=== PATIENT | male | born 1955 | race African-American/Black ===

== ENCOUNTER 2016-08-17 13:50 | Inpatient (IN) | payer OTHER ==
[~2016-08-17] VITALS: Ht 177.8 cm; Wt 66.5 kg
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
--- NOTE | ~2016-08-17 | EKG ---
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 : 1955 Requested By: Eusebio Newman Order Number: [id number] MD: Brady Veloz Measurements Intervals [place] Rate: 99 P: 73 WA: 142 QRS: 56 QRSD: 93 T: 81 QT: 336 QTc: 432 Interpretive Statements Sinus rhythm Poor R-wave progression Compared to ECG 08/15/2016 14:55:43 Ventricular premature complex(es) no longer present Electronically Signed On 08-23-2016 8:30:30 CDT by Brady Veloz [email or web address] <ELECTRONICALLY SIGNED> By: Brady Veloz MD, [facility] 08/23/16 0830 1125 1125 Brady Veloz MD, [facility] /EPI
[~2016-08-17 13:50] MED LIST: ALBUTEROL2.5 MG/0.5 INH; AUGMENTIN 875-1 EACH PO; BROVANA15 MCG/2 M INH; DOXYCYCLINE 10100 MG PO; HYDROCODONE-AP1 EAC6 PO; LEVAQUIN 500 M500 M2 PO; PREDNISONE 10 M10 MG PO; PREDNISONE 20 M20 MG PO; PREDNISONE50 MG PO; PROAIR HFA8.5 GM INH; PROVENTIL HFA6.7 G1 INH; PULMICORT0.5 MG/22 INH; VENTOLIN HFA 1818 GM INH; VERAPAMIL HCL 880 M1 PO
[2016-08-17 13:55] VITALS: BP 152/112
[2016-08-17 14:33] LABS: HEMATOCRIT 44.3 % (42.0-52.0); HEMOGLOBIN 14.8 gm/dL (14.0-18.0); MCH 30.4 pg (26.0-34.0); MCHC 33.3 g/dL (28.0-37.0); MCV 91.3 fL (80.0-100.0); PLATELET COUNT 296 thou/uL (150-400); RBC 4.85 mil/uL (4.50-6.00); RDW 12.9 % (10.5-14.5)
[2016-08-17 14:34] LABS: MANUAL DIFF YES
[2016-08-17 14:34] LABS: ABG SAMPLE TYPE ARTERIAL; BE(vivo) 3.2 mmol/L (-2 to +3); HCO3 29.6 mmol/L (22.0-26.0); LACTATE 0.95 mmol/L (0.5-2.0); O2(CT) 21.2 mL/dL (15.0-23.0); O2Hb 94.8 % (92.0-98.0); PCO2 51.6 mmHg (35.0-45.0); PO2 109.4 mmHg (80.0-100.0); STICK SITE R.RADIAL; pH 7.377 (7.360-7.450); sO2 97.8 % (92.0-98.0); tCO2 31.2 mmol/L (24.0-30.0)
[2016-08-17 14:43] LABS: CALCIUM 8.9 mg/dL (8.5-10.1); CREATININE 0.7 mg/dL (0.6-1.3); POTASSIUM 4.4 mmol/L (3.5-5.1)
[2016-08-17 15:15] LABS: ABSOLUTE NEUTROPHILS 7.9 thou/uL (1.4-8.2); PLATELET ESTIMATE NORMAL; TOTAL CELL COUNT 100
[2016-08-17 17:18] VITALS: BP 153/93
[2016-08-17 17:30] LABS: ALBUMIN 3.4 g/dL (3.4-5.0); CALCIUM 8.9 mg/dL (8.5-10.1); CREATININE 0.7 mg/dL (0.6-1.3); POTASSIUM 4.6 mmol/L (3.5-5.1); TOTAL BILIRUBIN 0.5 mg/dL (<0.1-1.0); TOTAL PROTEIN 7.1 g/dL (6.4-8.2)
[2016-08-17] MEDS ORDERED: VERAPAMIL HCL 880 M1 PO (18:08)
[2016-08-17 18:53] LABS: URINE BILIRUBIN NEGATIVE (Negative); URINE BLOOD 1+ (Negative); URINE COLOR YELLOW; URINE GLUCOSE-RANDOM* NEGATIVE (Negative); URINE KETONES NEGATIVE (Negative); URINE LEUKOCYTES-REFLEX NEGATIVE (Negative); URINE PROTEIN (DIPSTICK) NEGATIVE (Negative); URINE SPECIFIC GRAVITY 1.025 (1.003-1.035); URINE UROBILINOGEN 0.2 E.U./dl (0.2-1.0)
[2016-08-17 19:12] LABS: CASTS None Seen /LPF (None Seen); CRYSTALS None Seen /LPF (None Seen); SQUAMOUS None Seen /LPF (0-3); URINE RBC 0-2 Rare /HPF (0-2); URINE WBC-REFLEX None Seen /HPF (0-5)
[2016-08-17 20:00] VITALS: BP 179/116
[2016-08-17 23:50] VITALS: BP 129/94
[2016-08-18 05:18] LABS: HEMOGLOBIN 14.4 gm/dL (14.0-18.0); MCH 30.5 pg (26.0-34.0); MCHC 33.5 g/dL (28.0-37.0); MCV 91.1 fL (80.0-100.0); PLATELET COUNT 291 thou/uL (150-400); RBC 4.72 mil/uL (4.50-6.00); RDW 13.2 % (10.5-14.5); WBC 7.6 thou/uL (4.0-11.0)
[2016-08-18 05:28] VITALS: BP 139/98
[2016-08-18 05:28] LABS: MANUAL DIFF YES
[2016-08-18 05:44] LABS: CALCIUM 8.6 mg/dL (8.5-10.1); CREATININE 0.7 mg/dL (0.6-1.3); MAGNESIUM 2.1 mg/dL (1.8-2.4); POTASSIUM 3.9 mmol/L (3.5-5.1)
[2016-08-18 07:40] VITALS: BP 151/97
[2016-08-18 08:24] LABS: ABSOLUTE NEUTROPHILS 6.8 thou/uL (1.4-8.2); TOTAL CELL COUNT 100
[2016-08-18 08:25] LABS: ANISOCYTOSIS SLIGHT
[2016-08-18 11:52] VITALS: BP 138/94
[2016-08-18 16:25] VITALS: BP 130/82
[2016-08-18 19:16] VITALS: BP 132/93
[2016-08-19 03:32] VITALS: BP 112/78
[2016-08-19 05:36] LABS: HEMATOCRIT 41.4 % (42.0-52.0); HEMOGLOBIN 14.1 gm/dL (14.0-18.0); MCV 91.2 fL (80.0-100.0); PLATELET COUNT 293 thou/uL (150-400); RBC 4.54 mil/uL (4.50-6.00); WBC 8.3 thou/uL (4.0-11.0)
[2016-08-19 05:49] LABS: MANUAL DIFF YES
[2016-08-19 06:43] LABS: ABSOLUTE NEUTROPHILS 7.4 thou/uL (1.4-8.2); TOTAL CELL COUNT 100
[2016-08-19 07:38] VITALS: BP 140/93
[2016-08-19 11:30] VITALS: BP 128/93
[2016-08-19 15:33] VITALS: BP 146/99
[2016-08-19 19:36] VITALS: BP 153/91
[2016-08-20 04:10] LABS: HEMOGLOBIN 13.7 gm/dL (14.0-18.0); MCH 30.7 pg (26.0-34.0); MCHC 33.5 g/dL (28.0-37.0); MCV 91.7 fL (80.0-100.0); PLATELET COUNT 290 thou/uL (150-400); RBC 4.47 mil/uL (4.50-6.00); RDW 12.8 % (10.5-14.5); WBC 10.8 thou/uL (4.0-11.0)
[2016-08-20 04:19] LABS: CALCIUM 8.6 mg/dL (8.5-10.1); CREATININE 0.7 mg/dL (0.6-1.3); POTASSIUM 4.2 mmol/L (3.5-5.1)
[2016-08-20 04:23] LABS: MANUAL DIFF YES
[2016-08-20 04:56] VITALS: BP 122/82
[2016-08-20 05:07] LABS: ABSOLUTE NEUTROPHILS 9.4 thou/uL (1.4-8.2); ANISOCYTOSIS 1+; TOTAL CELL COUNT 100
[2016-08-20 07:15] VITALS: BP 120/85
[2016-08-20 11:57] VITALS: BP 126/88
[2016-08-20 19:56] VITALS: BP 138/98
[2016-08-21 02:47] VITALS: BP 106/73
[2016-08-21 06:01] LABS: HEMATOCRIT 43.8 % (42.0-52.0); HEMOGLOBIN 14.5 gm/dL (14.0-18.0); MCH 30.4 pg (26.0-34.0); MCHC 33.2 g/dL (28.0-37.0); MCV 91.5 fL (80.0-100.0); RBC 4.79 mil/uL (4.50-6.00); RDW 13.1 % (10.5-14.5); WBC 14.1 thou/uL (4.0-11.0)
[2016-08-21 06:14] LABS: ALBUMIN 3.1 g/dL (3.4-5.0); CALCIUM 9.1 mg/dL (8.5-10.1); CREATININE 0.6 mg/dL (0.6-1.3); PHOSPHORUS 3.8 mg/dL (2.5-4.9); POTASSIUM 4.2 mmol/L (3.5-5.1)
[2016-08-21 08:43] VITALS: BP 133/93
[2016-08-21 12:00] VITALS: BP 129/94
[2016-08-21 16:24] VITALS: BP 132/93
[2016-08-21 20:00] VITALS: BP 130/97
[2016-08-22 04:00] VITALS: BP 122/85
[2016-08-22 06:08] LABS: HEMATOCRIT 45.2 % (42.0-52.0); HEMOGLOBIN 15.1 gm/dL (14.0-18.0); MCH 30.4 pg (26.0-34.0); MCHC 33.3 g/dL (28.0-37.0); MCV 91.1 fL (80.0-100.0); RBC 4.96 mil/uL (4.50-6.00); RDW 12.9 % (10.5-14.5); WBC 17.3 thou/uL (4.0-11.0)
[2016-08-22 06:24] LABS: ALBUMIN 3.1 g/dL (3.4-5.0); CREATININE 0.7 mg/dL (0.6-1.3); PHOSPHORUS 4.8 mg/dL (2.5-4.9)
[2016-08-22 08:17] VITALS: BP 122/88
[2016-08-22 12:00] VITALS: BP 122/88
[2016-08-22 12:04] VITALS: BP 114/92
[2016-08-22 15:58] VITALS: BP 124/90
[2016-08-22 20:06] VITALS: BP 111/85
[2016-08-23 03:55] VITALS: BP 114/82
[2016-08-23 07:24] VITALS: BP 128/94
[2016-08-23 11:44] VITALS: BP 109/73
[2016-08-23 15:40] VITALS: BP 103/81
[2016-08-23 20:25] VITALS: BP 132/76
[2016-08-24 04:00] VITALS: BP 127/83
[2016-08-24 09:03] VITALS: BP 103/77
[2016-08-24 13:19] VITALS: BP 133/95
[2016-08-24 16:28] VITALS: BP 116/61
[2016-08-24 20:00] VITALS: BP 103/82
[2016-08-25 04:00] VITALS: BP 102/76
[2016-08-25 08:00] VITALS: BP 114/87
[2016-08-25 12:00] VITALS: BP 99/74
[2016-08-25 16:00] VITALS: BP 104/78
[2016-08-25] MEDS ORDERED: CEFUROXIME250 MG PO (16:46)
[2016-08-25] MEDS ORDERED: MUCINEX TA600 MG/TA1 PO (16:46)
[2016-08-25] MEDS ORDERED: PANTOPRAZOLE SO40 M1 PO (16:46)
[2016-08-25] MEDS ORDERED: PREDNISONE 10 M10 MG PO (16:48)
[2016-08-25 17:22] VITALS: BP 122/88
== END 2016-08-25 19:05 | disposition home health service (06) | DRG 871 ==
LOC: ER 13:50 → 4W 15:04 → EROBS 15:04 → 4W 15:40
PROVIDERS: Emergency Medicine; Hospitalist; Internal Medicine; Internal Medicine Geriatric Medicine
DX: A41.9 Sepsis, unspecified organism (principal); J96.22 Acute and chronic respiratory failure with hypercapnia; J18.9 Pneumonia, unspecified organism; J44.1 Chronic obstructive pulmonary disease with (acute) exacerbation; I16.1 Hypertensive emergency; J44.0 Chronic obstructive pulmonary disease with (acute) lower respiratory infection; I47.1 Supraventricular tachycardia; I10 Essential (primary) hypertension; I27.2 Other secondary pulmonary hypertension; F41.9 Anxiety disorder, unspecified; Z87.891 Personal history of nicotine dependence; Z82.3 Family history of stroke; Z82.49 Family history of ischemic heart disease and other diseases of the circulatory system; Z88.6 Allergy status to analgesic agent; Z83.6 Family history of other diseases of the respiratory system; Z79.899 Other long term (current) drug therapy; Z23 Encounter for immunization
CPT/HCPCS: 10045; 10047

== ENCOUNTER 2016-08-28 13:50 | Inpatient (IN) | payer OTHER ==
[~2016-08-28] VITALS: Ht 188 cm; Wt 67.1 kg
[~2016-08-28 13:50] MED LIST changes: +CEFUROXIME250 MG PO; +MUCINEX TA600 MG/TA1 PO; +PANTOPRAZOLE SO40 M1 PO
[2016-08-28 13:51] VITALS: BP 128/89
[2016-08-28] MEDS ORDERED: PREDNISONE 10 M10 MG PO (14:14)
[2016-08-28 14:28] LABS: HEMATOCRIT 41.7 % (42.0-52.0); MCH 30.3 pg (26.0-34.0); MCHC 33.6 g/dL (28.0-37.0); MCV 90.1 fL (80.0-100.0); PLATELET COUNT 456 thou/uL (150-400); RBC 4.63 mil/uL (4.50-6.00); WBC 18.3 thou/uL (4.0-11.0)
[2016-08-28 14:30] LABS: ABG SAMPLE TYPE ARTERIAL; BE(vivo) 1.7 mmol/L (-2 to +3); HCO3 27.3 mmol/L (22.0-26.0); LACTATE 1.67 mmol/L (0.5-2.0); O2(CT) 17.7 mL/dL (15.0-23.0); O2Hb 85.6 % (92.0-98.0); PCO2 46.1 mmHg (35.0-45.0); sO2 87.9 % (92.0-98.0); tCO2 28.7 mmol/L (24.0-30.0)
[2016-08-28 14:31] LABS: PO2 54.5 mmHg (80.0-100.0); STICK SITE L.RADIAL
[2016-08-28 14:33] LABS: MANUAL DIFF YES
[2016-08-28 14:39] LABS: CALCIUM 8.5 mg/dL (8.5-10.1); CREATININE 0.8 mg/dL (0.6-1.3); POTASSIUM 4.7 mmol/L (3.5-5.1)
[2016-08-28 14:59] LABS: ABSOLUTE NEUTROPHILS 16.3 thou/uL (1.4-8.2); ANISOCYTOSIS 1+; TOTAL CELL COUNT 100
[2016-08-28 17:36] VITALS: BP 140/102
[2016-08-28 21:00] VITALS: BP 111/78
[2016-08-29 04:56] VITALS: BP 131/98
[2016-08-29 05:04] LABS: HEMATOCRIT 39.8 % (42.0-52.0); HEMOGLOBIN 13.2 gm/dL (14.0-18.0); MCH 29.9 pg (26.0-34.0); MCHC 33.2 g/dL (28.0-37.0); RBC 4.42 mil/uL (4.50-6.00); WBC 19.2 thou/uL (4.0-11.0)
[2016-08-29 05:17] LABS: CALCIUM 8.6 mg/dL (8.5-10.1); CREATININE 0.7 mg/dL (0.6-1.3)
[2016-08-29 07:17] VITALS: BP 124/88
[2016-08-29 11:40] VITALS: BP 131/94
[2016-08-29 15:26] VITALS: BP 148/97
[2016-08-29 19:15] VITALS: BP 121/81
[2016-08-30 03:35] VITALS: BP 117/74
[2016-08-30 05:54] LABS: HEMATOCRIT 40.5 % (42.0-52.0); HEMOGLOBIN 13.5 gm/dL (14.0-18.0); MCH 30.1 pg (26.0-34.0); MCHC 33.2 g/dL (28.0-37.0); MCV 90.5 fL (80.0-100.0); RBC 4.48 mil/uL (4.50-6.00); RDW 12.9 % (10.5-14.5); WBC 26.4 thou/uL (4.0-11.0)
[2016-08-30 06:09] LABS: CALCIUM 8.6 mg/dL (8.5-10.1); CREATININE 0.7 mg/dL (0.6-1.3); POTASSIUM 3.8 mmol/L (3.5-5.1)
[2016-08-30 07:40] VITALS: BP 120/85
[2016-08-30 15:30] VITALS: BP 116/85
[2016-08-30 19:36] VITALS: BP 127/88
[2016-08-31 03:42] VITALS: BP 146/100
[2016-08-31 05:10] LABS: HEMATOCRIT 40.6 % (42.0-52.0); HEMOGLOBIN 13.4 gm/dL (14.0-18.0); MCH 29.9 pg (26.0-34.0); MCV 90.6 fL (80.0-100.0); RBC 4.49 mil/uL (4.50-6.00); RDW 12.9 % (10.5-14.5); WBC 20.7 thou/uL (4.0-11.0)
[2016-08-31 05:20] LABS: CALCIUM 8.7 mg/dL (8.5-10.1); CREATININE 0.6 mg/dL (0.6-1.3); POTASSIUM 4.2 mmol/L (3.5-5.1)
[2016-08-31 07:14] VITALS: BP 115/71
[2016-08-31 11:05] VITALS: BP 136/94
[2016-08-31 12:28] VITALS: BP 136/94
[2016-08-31] MEDS ORDERED: LEVAQUIN 500 M500 M1 PO (14:41)
[2016-08-31] MEDS ORDERED: PREDNISONE 10 M10 MG PO (14:42)
[2016-08-31 15:16] VITALS: BP 136/94
[2016-08-31] MEDS ORDERED: ALPRAZOLAM 0.50.5 M1 PO (15:36)
[2016-08-31 22:06] LABS: INFLUENZA B Negative (Negative); METAPNEUMOVIRUS Negative (Negative)
== END 2016-08-31 18:42 | disposition home health service (06) | DRG 871 ==
LOC: ER 13:50 → 4W 15:25 → EROBS 15:25 → 4W 16:54
PROVIDERS: Emergency Medicine; Internal Medicine
DX: A41.9 Sepsis, unspecified organism (principal); J96.21 Acute and chronic respiratory failure with hypoxia; J44.1 Chronic obstructive pulmonary disease with (acute) exacerbation; I10 Essential (primary) hypertension; F41.9 Anxiety disorder, unspecified; I27.2 Other secondary pulmonary hypertension; E78.5 Hyperlipidemia, unspecified; Z87.891 Personal history of nicotine dependence; Z87.828 Personal history of other (healed) physical injury and trauma; Z88.6 Allergy status to analgesic agent; Z82.3 Family history of stroke; Z82.5 Family history of asthma and other chronic lower respiratory diseases; Z81.2 Family history of tobacco abuse and dependence; Z79.51 Long term (current) use of inhaled steroids; Z79.899 Other long term (current) drug therapy
CPT/HCPCS: 10040

== ENCOUNTER 2016-09-15 10:07 | Emergency (ER) | payer OTHER ==
[~2016-09-15] VITALS: Ht 188 cm; Wt 68.0 kg
--- NOTE | ~2016-09-15 | EKG ---
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 : 1955 Requested By: Jose Montelongo Order Number: [id number] MD: Brady Veloz Measurements Intervals [place] Rate: 81 P: 46 VT: 160 QRS: 37 QRSD: 85 T: 70 QT: 349 QTc: 405 Interpretive Statements Sinus rhythm No significant abnormality Compared to ECG 08/22/2016 11:25:00 Poor R-wave progression no longer present Electronically Signed On 09-16-2016 8:34:33 CDT by Brady Veloz [email or web address] <ELECTRONICALLY SIGNED> By: Brady Veloz MD, [facility] 09/16/16 0834 1007 [facility] Brady Veloz MD, [facility] /EPI
[~2016-09-15 10:07] MED LIST changes: +ALPRAZOLAM 0.50.5 M1 PO; +LEVAQUIN 500 M500 M1 PO
[2016-09-15 10:40] LABS: HEMATOCRIT 41.9 % (42.0-52.0); HEMOGLOBIN 14.2 gm/dL (14.0-18.0); MCH 30.8 pg (26.0-34.0); MCV 90.6 fL (80.0-100.0); PLATELET COUNT 257 thou/uL (150-400); RBC 4.63 mil/uL (4.50-6.00); RDW 13.5 % (10.5-14.5); WBC 10.3 thou/uL (4.0-11.0)
[2016-09-15 10:47] LABS: MANUAL DIFF YES
[2016-09-15 10:50] LABS: CALCIUM 8.5 mg/dL (8.5-10.1); CREATININE 0.8 mg/dL (0.7-1.3); POTASSIUM 3.9 mmol/L (3.5-5.1)
[2016-09-15 11:23] LABS: METAMYELOCYTES 3 %; TOTAL CELL COUNT 100
[2016-09-15 11:24] LABS: ANISOCYTOSIS SLIGHT
[2016-09-15] MEDS ORDERED: ALBUTEROL2.5 MG/31 INH (12:40)
[2016-09-15] MEDS ORDERED: PROTONIX40 MG PO (12:40)
[2016-09-15] MEDS ORDERED: VENTOLIN HFA 1818 GM INH (12:40)
[2016-09-15] MEDS ORDERED: VERAPAMIL HCL 880 M1 PO (12:40)
[2016-09-15] MEDS ORDERED: QVAR8.7 G1 IH (12:40)
[2016-09-15 12:48] VITALS: BP 118/82
== END 2016-09-15 12:53 ==
LOC: ER 10:07
PROVIDERS: Emergency Medicine
DX: J44.1 Chronic obstructive pulmonary disease with (acute) exacerbation (principal); I10 Essential (primary) hypertension; Z88.6 Allergy status to analgesic agent; F17.210 Nicotine dependence, cigarettes, uncomplicated; F10.99 Alcohol use, unspecified with unspecified alcohol-induced disorder

== ENCOUNTER 2016-09-25 06:25 | Inpatient (IN) | payer OTHER ==
[~2016-09-25] VITALS: Ht 188 cm; Wt 73.0 kg
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
--- NOTE | ~2016-09-25 | EKG ---
[address] [place] [place] [address] ELECTROCARDIOGRAM REPORT Name: CATHERINE PORTILLO Room #: 441-P ADM IN M.R.#: [id number] Admission: 09/25/16 Attend Phys: Fabian Crisostomo MD Discharge: Date of : 57 Report #: [id number] THIS REPORT FOR: //name// [facility] ED Test Date: 2016-09-25 Test Time: 06:41:41 Pat Name: CATHERINE PORTILLO Department: Room: [facility] Gender: M Residential Youth Counselor: FROILAN : 1955 Requested By: Wyatt Calvin Order Number: [id number] MD: Brady Veloz Measurements Intervals [place] Rate: 73 P: 71 MT: 178 QRS: 61 QRSD: 85 T: 74 QT: 384 QTc: 424 Interpretive Statements Sinus rhythm Low voltage, extremity leads Baseline wander in lead(s) V1 Compared to ECG 09/15/2016 10:07:58 Low QRS voltage now present Electronically Signed On 09-25-2016 15:11:24 CDT by Brady Veloz [email or web address] <ELECTRONICALLY SIGNED> By: Brady Veloz MD, [facility] 09/25/16 1511 0641 0641 Brady Veloz MD, [facility] /EPI
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
[2016-09-25 06:25] VITALS: BP 123/85
[~2016-09-25 06:25] MED LIST changes: +ALBUTEROL2.5 MG/31 INH; +PROTONIX40 MG PO; +QVAR8.7 G1 IH
[2016-09-25 06:29] LABS: ABG SAMPLE TYPE ARTERIAL; BE(vivo) 3.2 mmol/L (-2 to +3); HCO3 28.6 mmol/L (22.0-26.0); LACTATE 3.72 mmol/L (0.5-2.0); O2(CT) 16.7 mL/dL (15.0-23.0); O2Hb 87.3 % (92.0-98.0); PCO2 46.2 mmHg (35.0-45.0); PO2 57.5 mmHg (80.0-100.0); STICK SITE L.RADIAL; pH 7.409 (7.360-7.450)
[2016-09-25 06:57] LABS: HEMATOCRIT 35.3 % (42.0-52.0); HEMOGLOBIN 11.8 gm/dL (14.0-18.0); MCH 30.2 pg (26.0-34.0); MCHC 33.4 g/dL (28.0-37.0); MCV 90.4 fL (80.0-100.0); RBC 3.9 mil/uL (4.50-6.00); RDW 13.9 % (10.5-14.5); WBC 14.4 thou/uL (4.0-11.0)
[2016-09-25 07:04] LABS: CALCIUM 8.1 mg/dL (8.5-10.1); CREATININE 0.6 mg/dL (0.7-1.3); POTASSIUM 3.7 mmol/L (3.5-5.1)
[2016-09-25 09:15] VITALS: BP 132/78
[2016-09-25 09:30] VITALS: BP 140/89
[2016-09-25 11:29] VITALS: BP 141/89
[2016-09-25 16:00] VITALS: BP 141/91
[2016-09-25 20:05] VITALS: BP 139/86
[2016-09-26 04:30] VITALS: BP 143/99
[2016-09-26 06:14] LABS: HEMATOCRIT 32.6 % (42.0-52.0); HEMOGLOBIN 10.9 gm/dL (14.0-18.0); MCHC 33.4 g/dL (28.0-37.0); RBC 3.62 mil/uL (4.50-6.00); RDW 13.9 % (10.5-14.5); WBC 20.8 thou/uL (4.0-11.0)
[2016-09-26 06:38] LABS: ALBUMIN 2.4 g/dL (3.4-5.0); CALCIUM 7.7 mg/dL (8.5-10.1); CREATININE 0.5 mg/dL (0.7-1.3); POTASSIUM 3.6 mmol/L (3.5-5.1); TOTAL BILIRUBIN 0.5 mg/dL (<0.1-1.0); TOTAL PROTEIN 5.4 g/dL (6.4-8.2)
[2016-09-26 08:00] VITALS: BP 142/89
[2016-09-26 16:00] VITALS: BP 150/90
[2016-09-26 20:35] VITALS: BP 149/97
[2016-09-27 03:30] VITALS: BP 139/88
[2016-09-27 08:00] VITALS: BP 147/102
[2016-09-27 09:30] VITALS: BP 140/88
[2016-09-27 11:25] VITALS: BP 123/85
[2016-09-27 16:00] VITALS: BP 135/98
[2016-09-27 19:23] VITALS: BP 140/96
[2016-09-28 03:45] VITALS: BP 138/98
[2016-09-28 07:45] VITALS: BP 141/98
[2016-09-28 12:00] VITALS: BP 142/93
[2016-09-28 15:24] VITALS: BP 162/98
[2016-09-28 19:01] VITALS: BP 131/93
[2016-09-29 02:45] VITALS: BP 137/103
[2016-09-29 08:00] VITALS: BP 163/103
[2016-09-29 11:55] VITALS: BP 143/94
[2016-09-29 12:06] VITALS: BP 143/94
[2016-09-29] MEDS ORDERED: DOXYCYCLINE 10100 MG PO (12:21)
[2016-09-29] MEDS ORDERED: MUCINEX TA600 MG/TA2 PO (12:21)
[2016-09-29] MEDS ORDERED: FLONASE 0.05%50 MCG NASAL (12:21)
[2016-09-29] MEDS ORDERED: ALPRAZOLAM 0.0.25 M1 PO (12:21)
[2016-09-29] MEDS ORDERED: PREDNISONE 10 M10 M1 PO (12:21)
[2016-09-29] MEDS ORDERED: XOPENEX 0.63 MG/3 M1 INH ×2 (12:21)
== END 2016-09-29 16:27 | disposition home health service (06) | DRG 189 ==
LOC: ER 06:25 → EROBS 08:05 → 4S 08:05
PROVIDERS: Emergency Medicine; Internal Medicine Pulmonary Disease
DX: J96.01 Acute respiratory failure with hypoxia (principal); E43 Unspecified severe protein-calorie malnutrition; J44.1 Chronic obstructive pulmonary disease with (acute) exacerbation; I48.92 Unspecified atrial flutter; I10 Essential (primary) hypertension; F41.9 Anxiety disorder, unspecified; R53.81 Other malaise; Z82.3 Family history of stroke; Z83.6 Family history of other diseases of the respiratory system; Z87.891 Personal history of nicotine dependence; Z88.6 Allergy status to analgesic agent
CPT/HCPCS: 10100

== ENCOUNTER 2016-10-06 17:03 | Inpatient (IN) | payer OTHER ==
[~2016-10-06] VITALS: Ht 188 cm; Wt 69.9 kg
--- NOTE | ~2016-10-06 | EKG ---
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: - : 1955 Requested By: Chelsi Mahoney Order Number: [id number] MD: Brady Veloz Measurements Intervals [place] Rate: 73 P: 0 WA: 184 QRS: 55 QRSD: 85 T: 67 QT: 380 QTc: 419 Interpretive Statements Sinus rhythm Low voltage, extremity leads Compared to ECG 09/25/2016 06:41:41 No significant changes Electronically Signed On 10-07-2016 8:03:20 CDT by Brady Veloz [email or web address] <ELECTRONICALLY SIGNED> By: Brady Veloz MD, [facility] 10/07/16 0803 1708 170 Brady Veloz MD, [facility] /EPI
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
[~2016-10-06 17:03] MED LIST changes: +ALPRAZOLAM 0.0.25 M1 PO; +FLONASE 0.05%50 MCG NASAL; +MUCINEX TA600 MG/TA2 PO; +PREDNISONE 10 M10 M1 PO; +XOPENEX 0.63 MG/3 M1 INH
[2016-10-06 17:05] VITALS: BP 114/73
[2016-10-06 18:09] LABS: HEMATOCRIT 48.2 % (42.0-52.0); HEMOGLOBIN 15.7 gm/dL (14.0-18.0); MCH 30.2 pg (26.0-34.0); MCHC 32.5 g/dL (28.0-37.0); MCV 92.9 fL (80.0-100.0); PLATELET COUNT 357 thou/uL (150-400); RBC 5.19 mil/uL (4.50-6.00); RDW 14.6 % (10.5-14.5); WBC 29.7 thou/uL (4.0-11.0)
[2016-10-06 18:12] LABS: MANUAL DIFF YES
[2016-10-06 18:20] LABS: ANION GAP 8 mmol/L (7-16); BUN 15 mg/dL (7-18); CALCIUM 9.1 mg/dL (8.5-10.1); CHLORIDE 98 mmol/L (98-107); CO2 31 mmol/L (21-32); CREATININE 0.7 mg/dL (0.7-1.3); GLUCOSE 159 mg/dL (74-106); POTASSIUM 4.8 mmol/L (3.5-5.1); SODIUM 137 mmol/L (136-145)
[2016-10-06 18:23] LABS: APTT 24.8 Seconds (24.5-32.8); PROTIME 10.1 Seconds (9.3-11.4)
[2016-10-06 18:31] LABS: ALBUMIN 3.6 g/dL (3.4-5.0); ALKALINE PHOSPHATASE 72 U/L (46-116); NT-PRO BRAIN NAT PEPTIDE 346 pg/mL (<300); SGOT 21 U/L (15-37); SGPT 31 U/L (30-65); TOTAL BILIRUBIN 0.8 mg/dL (<0.1-1.0); TOTAL PROTEIN 6.8 g/dL (6.4-8.2); TROPONIN-I < 0.04 ng/mL (<0.04-0.07)
[2016-10-06 18:33] LABS: ABSOLUTE NEUTROPHILS 28.2 thou/uL (1.4-8.2); PLATELET ESTIMATE NORMAL; TOTAL CELL COUNT 100
[2016-10-06 18:34] LABS: ANISOCYTOSIS SLIGHT
[2016-10-06 19:50] LABS: ABG SAMPLE TYPE ARTERIAL; BE(vivo) 8.2 mmol/L (-2 to +3); HCO3 34.7 mmol/L (22.0-26.0); O2Hb 88.9 % (92.0-98.0); PCO2 55.7 mmHg (35.0-45.0); PO2 58.9 mmHg (80.0-100.0); STICK SITE R.RADIAL; pH 7.412 (7.360-7.450); sO2 90.3 % (92.0-98.0); tCO2 36.4 mmol/L (24.0-30.0)
[2016-10-06 20:41] VITALS: BP 118/76
[2016-10-07] VITALS (7 sets, daily range): BP systolic 101–122; BP diastolic 73–90
[2016-10-07 08:34] LABS: HEMATOCRIT 49.3 % (42.0-52.0); MCH 30.4 pg (26.0-34.0); MCHC 32.5 g/dL (28.0-37.0); MCV 93.6 fL (80.0-100.0); RBC 5.27 mil/uL (4.50-6.00); RDW 15.1 % (10.5-14.5); WBC 14.8 thou/uL (4.0-11.0)
[2016-10-07 08:43] LABS: CALCIUM 8.5 mg/dL (8.5-10.1); CREATININE 0.6 mg/dL (0.7-1.3); POTASSIUM 4.6 mmol/L (3.5-5.1)
[2016-10-08 04:03] VITALS: BP 124/94
[2016-10-08 05:27] LABS: URINE BILIRUBIN NEGATIVE (Negative); URINE BLOOD NEGATIVE (Negative); URINE COLOR YELLOW; URINE GLUCOSE-RANDOM* NEGATIVE (Negative); URINE KETONES NEGATIVE (Negative); URINE LEUKOCYTES-REFLEX NEGATIVE (Negative); URINE PROTEIN (DIPSTICK) NEGATIVE (Negative); URINE UROBILINOGEN 0.2 E.U./dl (0.2-1.0)
[2016-10-08 07:19] VITALS: BP 127/96
[2016-10-08 10:51] VITALS: BP 101/73
[2016-10-08 10:54] VITALS: BP 101/73
[2016-10-08 11:54] VITALS: BP 101/73
== END 2016-10-08 11:49 | disposition home health service (06) | DRG 917 ==
LOC: ER 17:03 → 4W 19:20 → EROBS 19:20 → 4W 20:03
PROVIDERS: Emergency Medicine; Nurse Practitioner Acute Care
DX: T42.4X1A Poisoning by benzodiazepines, accidental (unintentional), initial encounter (principal); J96.20 Acute and chronic respiratory failure, unspecified whether with hypoxia or hypercapnia; J96.11 Chronic respiratory failure with hypoxia; J44.9 Chronic obstructive pulmonary disease, unspecified; I10 Essential (primary) hypertension; F17.210 Nicotine dependence, cigarettes, uncomplicated; F10.10 Alcohol abuse, uncomplicated; D72.829 Elevated white blood cell count, unspecified; F41.9 Anxiety disorder, unspecified; W18.39XA Other fall on same level, initial encounter; Y93.89 Activity, other specified; Y92.89 Other specified places as the place of occurrence of the external cause; Z82.5 Family history of asthma and other chronic lower respiratory diseases; Z88.6 Allergy status to analgesic agent; Z82.3 Family history of stroke; Z90.81 Acquired absence of spleen; Y99.8 Other external cause status
CPT/HCPCS: 10045

== ENCOUNTER 2016-10-10 03:01 | Inpatient (IN) | payer OTHER ==
[~2016-10-10] VITALS: Ht 188 cm; Wt 65.5 kg
[2016-10-10 03:02] VITALS: BP 125/91
[2016-10-10 03:22] LABS: ABG SAMPLE TYPE ARTERIAL; BE(vivo) 3.4 mmol/L (-2 to +3); HCO3 28.5 mmol/L (22.0-26.0); LACTATE 1.02 mmol/L (0.5-2.0); PCO2 44.7 mmHg (35.0-45.0); pH 7.422 (7.360-7.450); sO2 87.3 % (92.0-98.0); tCO2 29.8 mmol/L (24.0-30.0)
[2016-10-10 03:23] LABS: O2Hb 84.8 % (92.0-98.0); STICK SITE R.RADIAL
[2016-10-10 04:17] LABS: HEMOGLOBIN 15.6 gm/dL (14.0-18.0); MANUAL DIFF YES; MCH 30.8 pg (26.0-34.0); MCHC 33.1 g/dL (28.0-37.0); MCV 92.9 fL (80.0-100.0); PLATELET COUNT 311 thou/uL (150-400); RBC 5.05 mil/uL (4.50-6.00); RDW 14.5 % (10.5-14.5); WBC 12.4 thou/uL (4.0-11.0)
[2016-10-10 04:19] LABS: CALCIUM 8.7 mg/dL (8.5-10.1); CREATININE 0.6 mg/dL (0.7-1.3); POTASSIUM 4.5 mmol/L (3.5-5.1)
[2016-10-10 04:50] VITALS: BP 106/75
[2016-10-10 04:55] VITALS: BP 122/70
[2016-10-10 07:50] VITALS: BP 109/79
[2016-10-10 08:24] LABS: METAMYELOCYTES 3 %; TOTAL CELL COUNT 100
[2016-10-10 08:25] LABS: ANISOCYTOSIS SLIGHT
[2016-10-10 20:00] VITALS: BP 119/82
[2016-10-11 04:00] VITALS: BP 123/92
[2016-10-11 07:34] VITALS: BP 108/83
[2016-10-11 14:27] VITALS: BP 109/84
[2016-10-11 20:00] VITALS: BP 117/85
[2016-10-12 04:00] VITALS: BP 120/83
[2016-10-12 07:33] VITALS: BP 121/89
[2016-10-12] MEDS ORDERED: LEVAQUIN 500 M500 M2 PO (10:13)
[2016-10-12 12:16] VITALS: BP 121/89
[2016-10-12 12:24] VITALS: BP 106/78
[2016-10-12 15:35] VITALS: BP 121/89
[2016-10-12 16:10] VITALS: BP 121/95
== END 2016-10-12 17:48 | disposition home health service (06) | DRG 871 ==
LOC: ER 03:01 → EROBS 04:08 → 4E 04:08
PROVIDERS: Emergency Medicine
DX: A41.9 Sepsis, unspecified organism (principal); J96.20 Acute and chronic respiratory failure, unspecified whether with hypoxia or hypercapnia; J69.0 Pneumonitis due to inhalation of food and vomit; J98.01 Acute bronchospasm; J44.9 Chronic obstructive pulmonary disease, unspecified; I10 Essential (primary) hypertension; Z90.81 Acquired absence of spleen; Z88.6 Allergy status to analgesic agent; Z99.81 Dependence on supplemental oxygen; Z82.3 Family history of stroke; Z82.5 Family history of asthma and other chronic lower respiratory diseases; Z87.891 Personal history of nicotine dependence; Z79.899 Other long term (current) drug therapy
CPT/HCPCS: 10183

== ENCOUNTER 2016-10-17 17:05 | Emergency (ER) | payer OTHER ==
[~2016-10-17] VITALS: Ht 188 cm; Wt 71.7 kg
--- NOTE | ~2016-10-17 | EKG ---
[place] [address] [facility] [place] [address] ELECTROCARDIOGRAM REPORT Name: CATHERINE PORTILLO Room #: DEP [facility]#: [id number] Admission: 10/17/16 Attend Phys: Discharge: 10/17/16 Date of : 57 Report #: [id number] THIS REPORT FOR: //name// [facility] ED Test Date: 2016-10-17 Test Time: 18:45:41 Pat Name: CATHERINE PORTILLO Department: Room: Gender: Data Entry Assistant: gracy : 1955 Requested By: Destini De Anda Order Number: [id number] MD: Brady Veloz Measurements Intervals [place] Rate: 79 P: 74 [place]: 165 QRS: 66 QRSD: 81 T: 80 QT: 367 QTc: 421 Interpretive Statements Sinus tachycardia Multiform ventricular premature complexes Low voltage, extremity leads Compared to ECG 10/06/2016 17:08:39 Ventricular premature complex(es) now present Electronically Signed On 10-18-2016 7:36:07 CDT by Brady Veloz [email or web address] <ELECTRONICALLY SIGNED> By: Brady Veloz MD, [facility] 10/18/16 0736 1845 1845 Brady Veloz MD, [facility] /EPI
[2016-10-17 17:34] LABS: ABG SAMPLE TYPE ARTERIAL; HCO3 28.5 mmol/L (22.0-26.0); LACTATE 1.32 mmol/L (0.5-2.0); O2(CT) 17.8 mL/dL (15.0-23.0); O2Hb 92.4 % (92.0-98.0); PO2 75.7 mmHg (80.0-100.0); pH 7.449 (7.360-7.450); sO2 95.7 % (92.0-98.0); tCO2 29.8 mmol/L (24.0-30.0)
[2016-10-17 17:35] LABS: ABG COMMENT NO COMPLICATIONS.; STICK SITE R.RADIAL
[2016-10-17 18:44] LABS: HEMATOCRIT 38.1 % (42.0-52.0); HEMOGLOBIN 12.8 gm/dL (14.0-18.0); MCH 30.4 pg (26.0-34.0); MCHC 33.6 g/dL (28.0-37.0); MCV 90.2 fL (80.0-100.0); PLATELET COUNT 290 thou/uL (150-400); RBC 4.22 mil/uL (4.50-6.00); RDW 14.7 % (10.5-14.5); WBC 15.3 thou/uL (4.0-11.0)
[2016-10-17 18:45] LABS: MANUAL DIFF YES
[2016-10-17 19:00] LABS: ANION GAP 6 mmol/L (7-16); BUN 7 mg/dL (7-18); CHLORIDE 101 mmol/L (98-107); CO2 30 mmol/L (21-32); CREATININE 0.6 mg/dL (0.7-1.3); GLUCOSE 149 mg/dL (74-106); SODIUM 137 mmol/L (136-145)
[2016-10-17 19:04] LABS: ALBUMIN 2.9 g/dL (3.4-5.0); ALKALINE PHOSPHATASE 60 U/L (46-116); SGOT 16 U/L (15-37); SGPT 26 U/L (30-65); TOTAL BILIRUBIN 0.5 mg/dL (<0.1-1.0); TOTAL PROTEIN 6.3 g/dL (6.4-8.2); TROPONIN-I < 0.04 ng/mL (<0.04-0.07)
[2016-10-17 19:05] LABS: ABSOLUTE NEUTROPHILS 13.5 thou/uL (1.4-8.2); METAMYELOCYTES 1 %; TOTAL CELL COUNT 100
[2016-10-17] MEDS ORDERED: PREDNISONE 20 M20 MG PO (20:20)
[2016-10-17] MEDS ORDERED: LEVAQUIN 500 M500 MG PO (20:20)
[2016-10-17 20:40] VITALS: BP 118/80
== END 2016-10-17 20:42 | disposition home or self-care (01) ==
LOC: ER 17:05
PROVIDERS: Physician Assistant
DX: J44.1 Chronic obstructive pulmonary disease with (acute) exacerbation (principal); J18.9 Pneumonia, unspecified organism; I10 Essential (primary) hypertension; Z90.81 Acquired absence of spleen; Z88.6 Allergy status to analgesic agent; Z87.891 Personal history of nicotine dependence

== ENCOUNTER 2016-11-20 14:10 | Emergency (ER) | payer OTHER ==
[~2016-11-20] VITALS: Ht 188 cm; Wt 69.8 kg
--- NOTE | ~2016-11-20 | EKG ---
[place] [address] [place] [address] ELECTROCARDIOGRAM REPORT Name: CATHERINE PORTILLO Room #: [facility]P [facility] [id number] Admission: 11/20/16 Attend Phys: Discharge: 11/20/16 Date of : 57 Report #: [id number] THIS REPORT FOR: //name// [facility] ED Test Date: 2016-11-20 Test Time: 14:26:00 Pat Name: CATHERINE PORTILLO Department: Room: Gender: Financial Services Officer: karri : 1955 Requested By: Elizabeth Garland Order Number: [id number] MD: Brady Veloz Measurements Intervals [place] Rate: 87 P: 72 PA: 171 QRS: -1 QRSD: 84 T: 67 QT: 352 QTc: 424 Interpretive Statements Sinus rhythm Multiple ventricular premature complexes Low voltage, extremity leads Compared to ECG 10/17/2016 18:45:41 No significant change was found Electronically Signed On 11-21-2016 7:54:30 CDT by Brady Veloz [email or web address] <ELECTRONICALLY SIGNED> By: Brady Veloz MD, [facility] 11/21/16 0754 25 142 Brady Veloz MD, [facility] /EPI
[~2016-11-20 14:10] MED LIST changes: +LEVAQUIN 500 M500 MG PO
[2016-11-20 14:42] LABS: HEMATOCRIT 39.6 % (42.0-52.0); HEMOGLOBIN 13.3 gm/dL (14.0-18.0); MCH 30.1 pg (26.0-34.0); MCHC 33.5 g/dL (28.0-37.0); MCV 89.9 fL (80.0-100.0); PLATELET COUNT 291 thou/uL (150-400); WBC 10.5 thou/uL (4.0-11.0)
[2016-11-20 14:45] LABS: MANUAL DIFF YES
[2016-11-20 14:51] LABS: ANION GAP 6 mmol/L (7-16); BUN 4 mg/dL (7-18); CALCIUM 8.3 mg/dL (8.5-10.1); CHLORIDE 108 mmol/L (98-107); CO2 30 mmol/L (21-32); CREATININE 0.6 mg/dL (0.7-1.3); GLUCOSE 107 mg/dL (74-106); POTASSIUM 4.1 mmol/L (3.5-5.1); SODIUM 144 mmol/L (136-145)
[2016-11-20] MEDS ORDERED: ALBUTEROL2.5 MG/31 INH (14:57)
[2016-11-20 15:02] LABS: ALBUMIN 2.9 g/dL (3.4-5.0); ALKALINE PHOSPHATASE 70 U/L (46-116); NT-PRO BRAIN NAT PEPTIDE 237 pg/mL (<300); SGOT 32 U/L (15-37); SGPT 21 U/L (30-65); TOTAL BILIRUBIN 0.5 mg/dL (<0.1-1.0); TROPONIN-I < 0.04 ng/mL (<0.04-0.07)
[2016-11-20 15:14] LABS: ABSOLUTE NEUTROPHILS 8.3 thou/uL (1.4-8.2); TOTAL CELL COUNT 100
[2016-11-20 15:19] LABS: ANISOCYTOSIS 2+
[2016-11-20 15:20] LABS: HYPOCHROMASIA 1+; POLYCHROMASIA SLIGHT
[2016-11-20] MEDS ORDERED: LASIX 20 MG TAB20 MG PO (15:27)
[2016-11-20 15:30] VITALS: BP 113/75
== END 2016-11-20 15:27 | disposition home or self-care (01) ==
LOC: ER 14:10
PROVIDERS: Physician Assistant
DX: R60.0 Localized edema (principal); J44.9 Chronic obstructive pulmonary disease, unspecified; I10 Essential (primary) hypertension; Z90.81 Acquired absence of spleen; Z98.890 Other specified postprocedural states; Z88.6 Allergy status to analgesic agent; Z87.891 Personal history of nicotine dependence; F10.99 Alcohol use, unspecified with unspecified alcohol-induced disorder

== ENCOUNTER 2016-11-22 07:17 | Inpatient (IN) | payer OTHER ==
[~2016-11-22] VITALS: Ht 188 cm; Wt 68.9 kg
--- NOTE | ~2016-11-22 | EKG ---
[address] [place] [address] ELECTROCARDIOGRAM REPORT Name: PORTILLOCATHERINE KINNEY Nohemi Room #: 462-P ADM IN M.R.#: [id number] Admission: 11/22/16 Attend Phys: Fabian Crisostomo MD Discharge: Date of : 57 Report #: [id number] THIS REPORT FOR: //name// [facility] ED Test Date: 2016-11-22 Test Time: 07:45:42 Pat Name: CATHERINE PORTILLO Department: Room: 462 Gender: M Regulator Pin Inserter: ayla : 1955 Requested By: Melita Francis Order Number: [id number] MD: Gilmer Kaminski Measurements Intervals [place] Rate: 96 P: 82 [place]: 190 QRS: 69 QRSD: 87 T: 77 QT: 361 QTc: 457 Interpretive Statements Sinus rhythm Probable left atrial enlargement Low voltage, extremity and precordial leads Nonspecific T abnrm, anterolateral leads Compared to ECG 11/20/2016 14:26:00 Ventricular premature complex(es) no longer present Electronically Signed On 11-22-2016 12:58:31 CDT by Gilmer Kaminski [email or web address] <ELECTRONICALLY SIGNED> By: Gilmer Kaminski MD 11/22/16 1258 0745 0745 Gilmer Kaminski MD /EPI
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
[~2016-11-22 07:17] MED LIST changes: +LASIX 20 MG TAB20 MG PO
[2016-11-22 07:18] VITALS: BP 147/106
[2016-11-22 08:27] LABS: CALCIUM 8.6 mg/dL (8.5-10.1); CREATININE 0.6 mg/dL (0.7-1.3); POTASSIUM 3.8 mmol/L (3.5-5.1)
[2016-11-22 08:44] LABS: ABSOLUTE NEUTROPHILS 8.8 thou/uL (1.4-8.2); EOSINOPHILS 0.6 % (0.0-3.0); HEMATOCRIT 42.9 % (42.0-52.0); HEMOGLOBIN 13.9 gm/dL (14.0-18.0); LYMPHOCYTES 13.3 % (24.0-44.0); MANUAL DIFF NO; MCH 29.8 pg (26.0-34.0); MCHC 32.5 g/dL (28.0-37.0); MCV 91.9 fL (80.0-100.0); MONOCYTES 9.4 % (1.0-8.0); PLATELET COUNT 308 thou/uL (150-400); POLYS 75.7 % (36.0-66.0); RBC 4.67 mil/uL (4.50-6.00); RDW 15.6 % (10.5-14.5); WBC 11.6 thou/uL (4.0-11.0)
[2016-11-22 09:25] LABS: ABG SAMPLE TYPE ARTERIAL; BE(vivo) 5.6 mmol/L (-2 to +3); O2(CT) 16.4 mL/dL (15.0-23.0); O2Hb 88.4 % (92.0-98.0); PCO2 68.4 mmHg (35.0-45.0); PO2 65.2 mmHg (80.0-100.0); STICK SITE R.RADIAL; pH 7.314 (7.360-7.450); sO2 90.3 % (92.0-98.0); tCO2 36.1 mmol/L (24.0-30.0)
[2016-11-22 10:25] VITALS: BP 144/104
[2016-11-22 11:51] LABS: ABG COMMENT BIPAP 14/6; ABG SAMPLE TYPE ARTERIAL; BE(vivo) 8.1 mmol/L (-2 to +3); HCO3 34.9 mmol/L (22.0-26.0); LACTATE 0.95 mmol/L (0.5-2.0); O2(CT) 17.1 mL/dL (15.0-23.0); O2Hb 93.5 % (92.0-98.0); PCO2 58.5 mmHg (35.0-45.0); PO2 80.5 mmHg (80.0-100.0); STICK SITE R.RADIAL; pH 7.393 (7.360-7.450); sO2 95.5 % (92.0-98.0); tCO2 36.7 mmol/L (24.0-30.0)
[2016-11-22 12:50] VITALS: BP 150/100
[2016-11-22 15:23] VITALS: BP 125/78
[2016-11-22 20:04] VITALS: BP 130/95
[2016-11-22 23:41] VITALS: BP 127/87
[2016-11-23 04:00] VITALS: BP 131/91
[2016-11-23 07:24] LABS: CALCIUM 8.4 mg/dL (8.5-10.1); CREATININE 0.5 mg/dL (0.7-1.3); MAGNESIUM 1.7 mg/dL (1.8-2.4); POTASSIUM 4.1 mmol/L (3.5-5.1)
[2016-11-23 07:41] VITALS: BP 128/90
[2016-11-23 11:46] VITALS: BP 127/93
[2016-11-23 15:43] VITALS: BP 157/107
[2016-11-23 20:06] VITALS: BP 135/97
[2016-11-23 20:31] LABS: HEMATOCRIT 40.2 % (42.0-52.0); HEMOGLOBIN 13.2 gm/dL (14.0-18.0); MCH 30.2 pg (26.0-34.0); MCHC 32.8 g/dL (28.0-37.0); RBC 4.37 mil/uL (4.50-6.00); WBC 9.5 thou/uL (4.0-11.0)
[2016-11-24 03:30] VITALS: BP 133/94
[2016-11-24 04:15] LABS: HEMOGLOBIN 13.1 gm/dL (14.0-18.0); MCH 29.7 pg (26.0-34.0); MCHC 33.5 g/dL (28.0-37.0); MCV 88.7 fL (80.0-100.0); RBC 4.4 mil/uL (4.50-6.00); RDW 15.2 % (10.5-14.5); WBC 11.7 thou/uL (4.0-11.0)
[2016-11-24 07:11] VITALS: BP 130/96
[2016-11-24 12:13] VITALS: BP 133/99
[2016-11-24] MEDS ORDERED: LEVAQUIN 750 M750 MG PO (13:12)
[2016-11-24] MEDS ORDERED: PREDNISONE 10 M10 MG PO (13:14)
[2016-11-24 14:07] VITALS: BP 133/99
[2016-11-24 16:04] VITALS: BP 133/99
[2016-11-24 16:07] VITALS: BP 133/99
== END 2016-11-24 16:01 | disposition home health service (06) | DRG 871 ==
LOC: ER 07:17 → EROBS 09:51 → 4W 09:51
PROVIDERS: Emergency Medicine; Hospitalist; Internal Medicine; Nurse Practitioner
DX: A41.9 Sepsis, unspecified organism (principal); J96.21 Acute and chronic respiratory failure with hypoxia; J18.9 Pneumonia, unspecified organism; J96.22 Acute and chronic respiratory failure with hypercapnia; J44.1 Chronic obstructive pulmonary disease with (acute) exacerbation; J44.0 Chronic obstructive pulmonary disease with (acute) lower respiratory infection; E87.0 Hyperosmolality and hypernatremia; I10 Essential (primary) hypertension; I48.91 Unspecified atrial fibrillation; I27.2 Other secondary pulmonary hypertension; Z79.899 Other long term (current) drug therapy; Z99.81 Dependence on supplemental oxygen; Z90.81 Acquired absence of spleen; Z88.6 Allergy status to analgesic agent; Z87.891 Personal history of nicotine dependence; Z82.3 Family history of stroke; Z83.6 Family history of other diseases of the respiratory system
CPT/HCPCS: 10045

== ENCOUNTER 2017-02-02 04:32 | Emergency (ER) | payer OTHER ==
[~2017-02-02] VITALS: Ht 188 cm; Wt 63.5 kg
[~2017-02-02 04:32] MED LIST changes: +LEVAQUIN 750 M750 MG PO
[2017-02-02] MEDS ORDERED: NORCO 5-325 TA1 EACH PO (05:15)
[2017-02-02 05:59] VITALS: BP 135/101
== END 2017-02-02 06:01 | disposition home or self-care (01) ==
LOC: ER 04:32
DX: S20.212A Contusion of left front wall of thorax, initial encounter (principal); I10 Essential (primary) hypertension; J44.9 Chronic obstructive pulmonary disease, unspecified; Z91.81 History of falling; Z90.81 Acquired absence of spleen; Z98.890 Other specified postprocedural states; Z87.891 Personal history of nicotine dependence; Z88.6 Allergy status to analgesic agent; W18.09XA Striking against other object with subsequent fall, initial encounter; Y93.89 Activity, other specified; Y92.89 Other specified places as the place of occurrence of the external cause; Y99.8 Other external cause status

== ENCOUNTER 2017-02-10 06:44 | Inpatient (IN) | payer OTHER ==
[~2017-02-10] VITALS: Ht 188 cm; Wt 72.6 kg
[2017-02-10] VITALS (7 sets, daily range): BP systolic 115–139; BP diastolic 79–95
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
[~2017-02-10 06:44] MED LIST changes: +NORCO 5-325 TA1 EACH PO
[2017-02-10 07:43] LABS: HEMATOCRIT 38.7 % (42.0-52.0); MCH 29.3 pg (26.0-34.0); MCHC 33.6 g/dL (28.0-37.0); MCV 87.2 fL (80.0-100.0); RBC 4.43 mil/uL (4.50-6.00); RDW 13.8 % (10.5-14.5); WBC 11.2 thou/uL (4.0-11.0)
[2017-02-10 07:53] LABS: ANION GAP < 0 mmol/L (7-16); BUN 10 mg/dL (7-18); CALCIUM 9.3 mg/dL (8.5-10.1); CHLORIDE 104 mmol/L (98-107); CO2 37 mmol/L (21-32); CREATININE 0.6 mg/dL (0.7-1.3); GLUCOSE 103 mg/dL (74-106); POTASSIUM 4.3 mmol/L (3.5-5.1); SODIUM 140 mmol/L (136-145)
[2017-02-11] VITALS: BP 136/82
[2017-02-11 04:00] VITALS: BP 130/97
[2017-02-11 08:00] VITALS: BP 136/90
[2017-02-11 16:00] VITALS: BP 137/100
[2017-02-11 20:00] VITALS: BP 135/96
[2017-02-12 04:10] VITALS: BP 144/101
[2017-02-12 08:00] VITALS: BP 134/92; BP 159/97
[2017-02-12 09:45] LABS: HEMATOCRIT 41.1 % (42.0-52.0); HEMOGLOBIN 13.5 gm/dL (14.0-18.0); MCH 28.7 pg (26.0-34.0); MCHC 32.9 g/dL (28.0-37.0); MCV 87.2 fL (80.0-100.0); RBC 4.71 mil/uL (4.50-6.00); RDW 13.5 % (10.5-14.5); WBC 17.8 thou/uL (4.0-11.0)
[2017-02-12 10:16] LABS: CALCIUM 8.7 mg/dL (8.5-10.1); CREATININE 0.7 mg/dL (0.7-1.3); POTASSIUM 3.7 mmol/L (3.5-5.1)
[2017-02-12 16:00] VITALS: BP 147/106
[2017-02-12 19:35] VITALS: BP 144/102
[2017-02-13 04:03] VITALS: BP 143/107
[2017-02-13 07:21] VITALS: BP 134/96
[2017-02-13] MEDS ORDERED: CIPRO500 MG PO (14:22)
[2017-02-13] MEDS ORDERED: PREDNISONE 10 M10 MG PO (14:24)
[2017-02-13 14:50] VITALS: BP 134/96
[2017-02-13 15:25] VITALS: BP 146/104
[2017-02-13 17:06] VITALS: BP 134/96
== END 2017-02-13 17:07 | disposition home or self-care (01) | DRG 871 ==
LOC: ER 06:44 → 3N 08:14 → EROBS 08:14 → 3N 10:10
PROVIDERS: Emergency Medicine; Internal Medicine
DX: A41.9 Sepsis, unspecified organism (principal); J96.21 Acute and chronic respiratory failure with hypoxia; J18.9 Pneumonia, unspecified organism; J44.1 Chronic obstructive pulmonary disease with (acute) exacerbation; J44.0 Chronic obstructive pulmonary disease with (acute) lower respiratory infection; E46 Unspecified protein-calorie malnutrition; I10 Essential (primary) hypertension; R26.81 Unsteadiness on feet; K59.00 Constipation, unspecified; F17.210 Nicotine dependence, cigarettes, uncomplicated; Z90.81 Acquired absence of spleen; Z79.899 Other long term (current) drug therapy; Z88.6 Allergy status to analgesic agent; Z82.5 Family history of asthma and other chronic lower respiratory diseases; Z82.3 Family history of stroke; Z99.81 Dependence on supplemental oxygen; Z68.20 Body mass index [BMI] 20.0-20.9, adult; Z91.81 History of falling
CPT/HCPCS: 10094

== ENCOUNTER 2017-02-24 23:13 | Inpatient (IN) | payer OTHER ==
[~2017-02-24] VITALS: Ht 188 cm; Wt 60.4 kg
--- NOTE | ~2017-02-24 | EKG ---
[address] [place] [address] ELECTROCARDIOGRAM REPORT Name: CATHERINE PORTILLO Room #: 212-P ADM IN M.R.#: [id number] Admission: 02/25/17 Attend Phys: Germán Worrell MD Discharge: Date of : 57 Report #: [id number] THIS REPORT FOR: //name// [facility] ED Test Date: 2017-02-24 Test Time: 23:27:26 Pat Name: CATHERINE PORTILLO Department: Room: 212 Gender: M Obstetrics Gyn: nati : 1955 Requested By: Wyatt Calvin Order Number: [id number] MD: Brady Veloz Measurements Intervals [place] Rate: 78 P: 66 DC: 178 QRS: 52 QRSD: 86 T: 75 QT: 378 QTc: 431 Interpretive Statements Sinus rhythm Ventricular premature complex Low voltage, extremity and precordial leads Compared to ECG 11/22/2016 07:45:42 Ventricular premature complex(es) now present Electronically Signed On 02-27-2017 8:16:06 CDT by Brady Veloz [email or web address] <ELECTRONICALLY SIGNED> By: Brady Veloz MD, [facility] 02/27/17 0816 2327 Brady Veloz MD, [facility] /EPI
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
[~2017-02-24 23:13] MED LIST changes: +CIPRO500 MG PO
[2017-02-24 23:17] VITALS: BP 121/79
[2017-02-24 23:32] LABS: ABG SAMPLE TYPE ARTERIAL; BE(vivo) 5.7 mmol/L (-2 to +3); LACTATE 1.35 mmol/L (0.5-2.0); O2(CT) 18.8 mL/dL (15.0-23.0); O2Hb 90.6 % (92.0-98.0); PCO2 66.5 mmHg (35.0-45.0); PO2 96.3 mmHg (80.0-100.0); sO2 96.7 % (92.0-98.0); tCO2 36.1 mmol/L (24.0-30.0)
[2017-02-24 23:33] LABS: STICK SITE R.RADIAL; pH 7.327 (7.360-7.450)
[2017-02-25] VITALS (8 sets, daily range): BP systolic 117–142; BP diastolic 79–102
[2017-02-25 00:03] LABS: HEMOGLOBIN 13.5 gm/dL (14.0-18.0)
[2017-02-25 00:04] LABS: HEMATOCRIT 41.1 % (42.0-52.0); MCHC 32.9 g/dL (28.0-37.0); MCV 88.2 fL (80.0-100.0); RBC 4.66 mil/uL (4.50-6.00); RDW 14.5 % (10.5-14.5); WBC 15.1 thou/uL (4.0-11.0)
[2017-02-25 00:27] LABS: ANION GAP 4 mmol/L (7-16); BUN 10 mg/dL (7-18); CALCIUM 8.9 mg/dL (8.5-10.1); CHLORIDE 103 mmol/L (98-107); CO2 33 mmol/L (21-32); CREATININE 0.6 mg/dL (0.7-1.3); GLUCOSE 72 mg/dL (74-106); POTASSIUM 4.3 mmol/L (3.5-5.1); SODIUM 140 mmol/L (136-145)
[2017-02-25 00:35] LABS: TROPONIN-I < 0.04 ng/mL (<0.04-0.07)
[2017-02-25 05:23] LABS: ABG SAMPLE TYPE ARTERIAL; BE(vivo) 6.8 mmol/L (-2 to +3); HCO3 34.1 mmol/L (22.0-26.0); LACTATE 1.38 mmol/L (0.5-2.0); O2(CT) 19.1 mL/dL (15.0-23.0); O2Hb 94.7 % (92.0-98.0); PCO2 60.5 mmHg (35.0-45.0); PO2 127.3 mmHg (80.0-100.0); pH 7.369 (7.360-7.450); sO2 98.4 % (92.0-98.0)
[2017-02-25 05:24] LABS: STICK SITE R.RADIAL
[2017-02-25 07:20] LABS: HEMATOCRIT 40.5 % (42.0-52.0); HEMOGLOBIN 13.1 gm/dL (14.0-18.0); MCH 28.6 pg (26.0-34.0); MCHC 32.4 g/dL (28.0-37.0); MCV 88.2 fL (80.0-100.0); RBC 4.6 mil/uL (4.50-6.00); RDW 14.2 % (10.5-14.5); WBC 14.6 thou/uL (4.0-11.0)
[2017-02-25 07:30] LABS: CALCIUM 8.8 mg/dL (8.5-10.1); CREATININE 0.5 mg/dL (0.7-1.3); POTASSIUM 4.2 mmol/L (3.5-5.1)
[2017-02-26 04:15] VITALS: BP 127/97
[2017-02-26 08:00] VITALS: BP 120/91
[2017-02-26 12:00] VITALS: BP 140/94
[2017-02-26 16:00] VITALS: BP 128/87
[2017-02-26 19:45] VITALS: BP 125/86
[2017-02-27 04:30] VITALS: BP 135/94
[2017-02-27 04:36] LABS: HEMATOCRIT 38.4 % (42.0-52.0); HEMOGLOBIN 12.9 gm/dL (14.0-18.0); MCH 29.1 pg (26.0-34.0); MCHC 33.6 g/dL (28.0-37.0); MCV 86.5 fL (80.0-100.0); PLATELET COUNT 344 thou/uL (150-400); RBC 4.43 mil/uL (4.50-6.00); RDW 14.1 % (10.5-14.5); WBC 16.2 thou/uL (4.0-11.0)
[2017-02-27 04:40] LABS: MANUAL DIFF YES
[2017-02-27 04:48] LABS: CALCIUM 8.8 mg/dL (8.5-10.1); CREATININE 0.5 mg/dL (0.7-1.3); POTASSIUM 3.7 mmol/L (3.5-5.1)
[2017-02-27 05:44] LABS: ABSOLUTE NEUTROPHILS 15.2 thou/uL (1.4-8.2); TOTAL CELL COUNT 100
[2017-02-27 07:24] VITALS: BP 125/90
[2017-02-27 11:05] VITALS: BP 144/100
[2017-02-27 15:11] VITALS: BP 135/100
[2017-02-27 19:53] VITALS: BP 126/87
[2017-02-28 04:04] VITALS: BP 111/77
[2017-02-28 07:56] VITALS: BP 130/82
[2017-02-28] MEDS ORDERED: NORCO 7.5-3251 EACH PO (09:25)
[2017-02-28] MEDS ORDERED: ALPRAZOLAM 0.0.25 M1 PO (09:25)
[2017-02-28] MEDS ORDERED: MUCINEX600 MG PO (09:26)
[2017-02-28 10:31] LABS: ABG SAMPLE TYPE ARTERIAL; BE(vivo) 3.6 mmol/L (-2 to +3); HCO3 29.3 mmol/L (22.0-26.0); O2(CT) 20.9 mL/dL (15.0-23.0); PCO2 48.1 mmHg (35.0-45.0); PO2 122.7 mmHg (80.0-100.0); pH 7.403 (7.360-7.450); sO2 98.4 % (92.0-98.0); tCO2 30.8 mmol/L (24.0-30.0)
[2017-02-28 10:32] LABS: STICK SITE R.RADIAL
[2017-02-28 11:23] VITALS: BP 134/82
[2017-02-28 15:28] VITALS: BP 121/95
[2017-02-28 19:41] VITALS: BP 111/83
[2017-03-01] VITALS (7 sets, daily range): BP systolic 115–142; BP diastolic 89–101
[2017-03-01 07:01] LABS: ABG SAMPLE TYPE ARTERIAL; BE(vivo) 4.7 mmol/L (-2 to +3); HCO3 28.6 mmol/L (22.0-26.0); LACTATE 2.07 mmol/L (0.5-2.0); O2(CT) 19.4 mL/dL (15.0-23.0); PCO2 39.7 mmHg (35.0-45.0); PO2 96.6 mmHg (80.0-100.0); STICK SITE R.RADIAL; pH 7.475 (7.360-7.450); sO2 97.7 % (92.0-98.0); tCO2 29.8 mmol/L (24.0-30.0)
== END 2017-03-01 16:39 | disposition home health service (06) | DRG 189 ==
LOC: ER 23:13 → EROBS 02-25 01:24 → 2N 02-25 01:24 → ENTRNSPT 03-01 16:23 → 2N 03-01 16:39
PROVIDERS: Emergency Medicine; Family Medicine; Internal Medicine Pulmonary Disease; Nurse Practitioner Family
PROC: 5A09357 Assistance with Respiratory Ventilation, Less than 24 Consecutive Hours, Continuous Positive Airway Pressure (ICD-10-PCS; principal; 2017-02-25)
DX: J96.21 Acute and chronic respiratory failure with hypoxia (principal); J44.1 Chronic obstructive pulmonary disease with (acute) exacerbation; J96.22 Acute and chronic respiratory failure with hypercapnia; I10 Essential (primary) hypertension; F41.9 Anxiety disorder, unspecified; D72.829 Elevated white blood cell count, unspecified; R26.81 Unsteadiness on feet; R29.6 Repeated falls; T38.0X5A Adverse effect of glucocorticoids and synthetic analogues, initial encounter; Y92.89 Other specified places as the place of occurrence of the external cause; Z79.899 Other long term (current) drug therapy; Z87.828 Personal history of other (healed) physical injury and trauma; Z99.81 Dependence on supplemental oxygen; Z87.891 Personal history of nicotine dependence; Z90.81 Acquired absence of spleen; Z88.6 Allergy status to analgesic agent; Z82.5 Family history of asthma and other chronic lower respiratory diseases; Z82.3 Family history of stroke
CPT/HCPCS: 10081

== ENCOUNTER 2017-03-05 22:03 | Emergency (ER) | payer OTHER ==
[~2017-03-05] VITALS: Ht 188 cm; Wt 61.2 kg
--- NOTE | ~2017-03-05 | EKG ---
[place] [address] [address] [facility] [place] [address] ELECTROCARDIOGRAM REPORT Name: PORTILLOCATHERINE KINNEY [id number] Admission: 03/05/17 Attend Phys: Discharge: 03/06/17 Date of : 57 Report #: [id number] THIS REPORT FOR: //name// [facility] ED Test Date: 2017-03-05 Test Time: 22:24:58 Pat Name: CATHERINE PORTILLO Department: Room: Gender: M Lithographers Printer: unknown : 1955 Requested By: Rick Kulkarni Order Number: [id number] MD: Gilmer Kaminski Measurements Intervals [place] Rate: 82 P: 65 [place]: 155 QRS: -27 QRSD: 82 T: 75 QT: 365 QTc: 427 Interpretive Statements Sinus rhythm Atrial premature complex Probable left atrial enlargement Borderline left axis deviation Low voltage, extremity and precordial leads Compared to ECG 02/24/2017 23:27:26 Atrial premature complex(es) now present Ventricular premature complex(es) no longer present Electronically Signed On 03-06-2017 8:48:09 CDT by Gilmer Kaminski [email or web address] <ELECTRONICALLY SIGNED> By: Gilmer Kaminski MD 03/06/17 0848 2224 2224 Gilmer Kaminski MD /EPI
[~2017-03-05 22:03] MED LIST changes: +MUCINEX600 MG PO; +NORCO 7.5-3251 EACH PO
[2017-03-05 22:27] LABS: HEMATOCRIT 39.1 % (42.0-52.0); HEMOGLOBIN 13.2 gm/dL (14.0-18.0); MCH 29.3 pg (26.0-34.0); MCHC 33.8 g/dL (28.0-37.0); MCV 86.7 fL (80.0-100.0); RBC 4.51 mil/uL (4.50-6.00); RDW 13.9 % (10.5-14.5); WBC 16.7 thou/uL (4.0-11.0)
[2017-03-05 22:32] LABS: MANUAL DIFF YES
[2017-03-05 22:35] LABS: ANION GAP 8 mmol/L (7-16); BUN 16 mg/dL (7-18); CALCIUM 8.4 mg/dL (8.5-10.1); CHLORIDE 99 mmol/L (98-107); CO2 26 mmol/L (21-32); CREATININE 0.5 mg/dL (0.7-1.3); GLUCOSE 162 mg/dL (74-106); POTASSIUM 4.3 mmol/L (3.5-5.1); SODIUM 133 mmol/L (136-145)
[2017-03-05 22:41] LABS: ALBUMIN 3.3 g/dL (3.4-5.0); ALKALINE PHOSPHATASE 47 U/L (46-116); SGOT 28 U/L (15-37); SGPT 31 U/L (30-65); TOTAL BILIRUBIN 0.6 mg/dL (<0.1-1.0); TROPONIN-I < 0.04 ng/mL (<0.04-0.07)
[2017-03-05 23:06] LABS: ABSOLUTE NEUTROPHILS 14.5 thou/uL (1.4-8.2); TOTAL CELL COUNT 100
[2017-03-05 23:11] LABS: PLATELET COUNT 274 thou/uL (150-400)
[2017-03-06 03:13] VITALS: BP 113/84
== END 2017-03-06 08:27 | disposition home or self-care (01) ==
LOC: ER 22:03
PROVIDERS: Physician Assistant
DX: J44.1 Chronic obstructive pulmonary disease with (acute) exacerbation (principal); D72.829 Elevated white blood cell count, unspecified; I10 Essential (primary) hypertension; F41.9 Anxiety disorder, unspecified; Z99.81 Dependence on supplemental oxygen; Z91.81 History of falling; Z90.81 Acquired absence of spleen; Z87.891 Personal history of nicotine dependence; Z79.82 Long term (current) use of aspirin

== ENCOUNTER 2017-03-14 00:55 | Inpatient (IN) | payer OTHER ==
[~2017-03-14] VITALS: Ht 188 cm; Wt 59.4 kg
[2017-03-14] VITALS (7 sets, daily range): BP systolic 103–122; BP diastolic 65–87
--- NOTE | ~2017-03-14 | EKG ---
[address] [address] ELECTROCARDIOGRAM REPORT Name: CATHERINE PORTILLO Room #: 447-P ADM IN M.R.#: [id number] Admission: 03/14/17 Attend Phys: Eloy Cabrera MD Discharge: Date of : 57 Report #: [id number] THIS REPORT FOR: //name// [facility] ED Test Date: 2017-03-14 Test Time: 01:24:38 Pat Name: CATHERINE PORTILLO Department: Room: [facility] Gender: M Professor Of Psychiatry: JOYCE : 1955 Requested By: Osmel Lennon Order Number: [id number] MD: Gilmer Kaminski Measurements Intervals [place] Rate: 87 P: [place]: QRS: 1 QRSD: 87 T: 83 QT: 413 QTc: 497 Interpretive Statements Sinus rhythm Compared to ECG 03/05/2017 22:24:58 Atrial premature complex(es) no longer present Electronically Signed On 03-14-2017 17:34:53 CDT by Gilmer Kaminski [email or web address] <ELECTRONICALLY SIGNED> By: Gilmer Kaminski MD 03/14/17 1734 3 3 Gilmer Kaminski MD /TIFFANIE
[2017-03-14 01:35] LABS: HEMATOCRIT 41.3 % (42.0-52.0); HEMOGLOBIN 13.6 gm/dL (14.0-18.0); MCH 28.9 pg (26.0-34.0); MCHC 33.1 g/dL (28.0-37.0); MCV 87.4 fL (80.0-100.0); PLATELET COUNT 300 thou/uL (150-400); RBC 4.72 mil/uL (4.50-6.00); RDW 13.8 % (10.5-14.5); WBC 13.5 thou/uL (4.0-11.0)
[2017-03-14 01:40] LABS: ANION GAP 4 mmol/L (7-16); BUN 9 mg/dL (7-18); CALCIUM 8.9 mg/dL (8.5-10.1); CHLORIDE 102 mmol/L (98-107); CO2 34 mmol/L (21-32); CREATININE 0.7 mg/dL (0.7-1.3); GLUCOSE 104 mg/dL (74-106); SODIUM 140 mmol/L (136-145)
[2017-03-14 01:44] LABS: MANUAL DIFF YES
[2017-03-14 01:49] LABS: ALKALINE PHOSPHATASE 67 U/L (46-116); SGOT 14 U/L (15-37); SGPT 21 U/L (30-65); TOTAL PROTEIN 6.8 g/dL (6.4-8.2); TROPONIN-I < 0.04 ng/mL (<0.04-0.07)
[2017-03-14 02:26] LABS: ABSOLUTE NEUTROPHILS 9.5 thou/uL (1.4-8.2); ATYPICAL LYMPHS 3 %; METAMYELOCYTES 1 %; MYELOCYTES 1 %; TOTAL CELL COUNT 100
[2017-03-14 02:29] LABS: ATYPICAL MONONUCLEARS 7 %; LARGE PLATELETS FEW
[2017-03-15 03:43] VITALS: BP 109/80
[2017-03-15 08:43] VITALS: BP 119/81
[2017-03-15 16:45] VITALS: BP 118/84
[2017-03-15 20:47] VITALS: BP 110/79
[2017-03-16 00:45] VITALS: BP 113/77
[2017-03-16 05:40] VITALS: BP 127/83
[2017-03-16 08:30] VITALS: BP 136/87
[2017-03-16 15:43] VITALS: BP 136/87
[2017-03-16] MEDS ORDERED: PEPCID20 MG PO (16:01)
[2017-03-16] MEDS ORDERED: PREDNISONE 20 M20 MG PO (16:01)
[2017-03-16] MEDS ORDERED: AZITHROMYCIN 2250 MG PO (16:01)
[2017-03-16] MEDS ORDERED: DALIRESP500 MCG PO (16:01)
[2017-03-16] MEDS ORDERED: ACETYLCYST200 MG/1 M INH (16:01)
[2017-03-16] MEDS ORDERED: COLACE100 MG PO (16:01)
[2017-03-16 16:11] VITALS: BP 128/91
[2017-03-16 16:31] VITALS: BP 136/87
[2017-03-17 03:15] LABS: INFLUENZA B Negative (Negative); METAPNEUMOVIRUS Negative (Negative)
== END 2017-03-16 19:13 | disposition home health service (06) | DRG 189 ==
LOC: ER 00:55 → 4S 02:43 → EROBS 02:43 → 4S 03:22
PROVIDERS: Emergency Medicine; Nurse Practitioner Acute Care
DX: J96.21 Acute and chronic respiratory failure with hypoxia (principal); E43 Unspecified severe protein-calorie malnutrition; J98.11 Atelectasis; J44.1 Chronic obstructive pulmonary disease with (acute) exacerbation; Z68.1 Body mass index [BMI] 19.9 or less, adult; D72.829 Elevated white blood cell count, unspecified; F41.9 Anxiety disorder, unspecified; Z90.81 Acquired absence of spleen; Z88.6 Allergy status to analgesic agent; Z87.891 Personal history of nicotine dependence; Z79.899 Other long term (current) drug therapy; Z82.3 Family history of stroke; Z82.5 Family history of asthma and other chronic lower respiratory diseases; Z79.52 Long term (current) use of systemic steroids; Z99.81 Dependence on supplemental oxygen; Z28.21 Immunization not carried out because of patient refusal
CPT/HCPCS: 10100

== ENCOUNTER 2017-04-02 15:50 | Inpatient (IN) | payer OTHER ==
[~2017-04-02] VITALS: Ht 185.4 cm; Wt 63.5 kg
--- NOTE | ~2017-04-02 | EKG ---
[address] [employer] [place] [address] ELECTROCARDIOGRAM REPORT Name: CATHERINE PORTILLO [facility] [id number] Admission: 04/02/17 Attend Phys: Discharge: Date of : 57 Report #: [id number] THIS REPORT FOR: //name// [facility] ED Test Date: 2017-04-02 Test Time: 16:04:04 Pat Name: CATHERINE PORTILLO Department: Room: Gender: M Employee Welfare Manager: MZOOK : 1955 Requested By: Erika Buchanan Order Number: [id number] MD: Gilmer Kaminski Measurements Intervals [place] Rate: 125 P: [place]: QRS: -40 QRSD: 81 T: 80 QT: 303 QTc: 437 Interpretive Statements Junctional tachycardia Inferior infarct, old Compared to ECG 03/14/2017 01:24:38 Junctional tachycardia now present Myocardial infarct finding now present Sinus rhythm no longer present Electronically Signed On 04-02-2017 16:37:32 CDT by Gilmer Kaminski [email or web address] <ELECTRONICALLY SIGNED> By: Gilmer Kaminski MD 04/02/17 1637 1604 160 Gilmer Kaminski MD /TIFFANIE
[~2017-04-02 15:50] MED LIST changes: +ACETYLCYST200 MG/1 M INH; +AZITHROMYCIN 2250 MG PO; +COLACE100 MG PO; +DALIRESP500 MCG PO; +PEPCID20 MG PO
[2017-04-02 15:51] VITALS: BP 125/87
[2017-04-02 16:11] LABS: HEMATOCRIT 43.5 % (42.0-52.0); HEMOGLOBIN 14.1 gm/dL (14.0-18.0); MANUAL DIFF YES; MCH 28.4 pg (26.0-34.0); MCHC 32.4 g/dL (28.0-37.0); MCV 87.5 fL (80.0-100.0); PLATELET COUNT 450 thou/uL (150-400); RBC 4.97 mil/uL (4.50-6.00)
[2017-04-02 16:15] LABS: ANION GAP 8 mmol/L (7-16); BUN 13 mg/dL (7-18); CHLORIDE 100 mmol/L (98-107); CO2 32 mmol/L (21-32); CREATININE 0.8 mg/dL (0.7-1.3); GLUCOSE 94 mg/dL (74-106); POTASSIUM 4.8 mmol/L (3.5-5.1); SODIUM 140 mmol/L (136-145)
[2017-04-02 16:24] LABS: TROPONIN-I < 0.04 ng/mL (<0.06)
[2017-04-02 16:31] LABS: TOTAL CELL COUNT 100
[2017-04-02 16:33] LABS: ATYPICAL LYMPHS 3 %; METAMYELOCYTES 1 %
[2017-04-02 16:34] LABS: ABSOLUTE NEUTROPHILS 17.4 thou/uL (1.4-8.2)
[2017-04-02 17:52] VITALS: BP 125/87
[2017-04-02 18:31] VITALS: BP 124/76
[2017-04-02 19:56] VITALS: BP 135/114
[2017-04-03 05:08] VITALS: BP 108/82
[2017-04-03 08:02] VITALS: BP 104/80
[2017-04-03 11:17] VITALS: BP 128/88
[2017-04-03 17:05] VITALS: BP 119/90
[2017-04-03 19:45] VITALS: BP 114/67
[2017-04-04 03:35] VITALS: BP 114/84
[2017-04-04 07:37] VITALS: BP 121/87
[2017-04-04 11:31] VITALS: BP 111/90
[2017-04-04 16:26] VITALS: BP 132/97
[2017-04-04 19:40] VITALS: BP 135/98
[2017-04-05 04:30] VITALS: BP 134/91
[2017-04-05 08:58] VITALS: BP 135/100
[2017-04-05] MEDS ORDERED: CARDIZEM CD180 MG PO (09:29)
[2017-04-05] MEDS ORDERED: LEVAQUIN 500 M500 M2 PO (09:29)
[2017-04-05] MEDS ORDERED: ALPRAZOLAM 0.0.25 M1 PO (09:30)
[2017-04-05] MEDS ORDERED: PREDNISONE 20 M20 MG PO (09:30)
[2017-04-05] MEDS ORDERED: HYDROCODON-ACE1 EAC7 PO (09:30)
[2017-04-05 10:12] VITALS: BP 135/100
[2017-04-05 13:00] VITALS: BP 136/101
[2017-04-05 17:34] VITALS: BP 137/97
== END 2017-04-05 17:57 | disposition home health service (06) | DRG 189 ==
LOC: ER 15:50 → 3W 17:16 → EROBS 17:16 → 3W 17:25 → ENTRNSPT 04-05 17:47 → 3W 04-05 17:57
PROVIDERS: Emergency Medicine
DX: J96.00 Acute respiratory failure, unspecified whether with hypoxia or hypercapnia (principal); J44.1 Chronic obstructive pulmonary disease with (acute) exacerbation; J44.0 Chronic obstructive pulmonary disease with (acute) lower respiratory infection; I10 Essential (primary) hypertension; F41.9 Anxiety disorder, unspecified; E86.0 Dehydration; Z77.22 Contact with and (suspected) exposure to environmental tobacco smoke (acute) (chronic); J20.9 Acute bronchitis, unspecified; D72.829 Elevated white blood cell count, unspecified; Z91.81 History of falling; Z88.6 Allergy status to analgesic agent; Z79.899 Other long term (current) drug therapy; Z90.81 Acquired absence of spleen; Z82.3 Family history of stroke; Z82.5 Family history of asthma and other chronic lower respiratory diseases; W18.30XA Fall on same level, unspecified, initial encounter; Y93.89 Activity, other specified; Y92.89 Other specified places as the place of occurrence of the external cause; Y99.8 Other external cause status
CPT/HCPCS: 10779

== ENCOUNTER 2017-04-15 15:33 | Inpatient (IN) | payer OTHER ==
[~2017-04-15] VITALS: Ht 188 cm; Wt 59.9 kg
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
--- NOTE | ~2017-04-15 | EKG ---
[address] [address] ELECTROCARDIOGRAM REPORT Name: CATHERINE PORTILLO Room #: 360-P ADM IN M.R.#: [id number] Admission: 04/15/17 Attend Phys: Itzel Frost MD Discharge: Date of : 57 Report #: [id number] THIS REPORT FOR: //name// [facility] ED Test Date: 2017-04-15 Test Time: 15:36:09 Pat Name: CATHERINE PORTILLO Department: Room: 360 Gender: M Application Support Analyst: FCO : 1955 Requested By: Kira Whitney Order Number: [id number] MD: Brady Veloz Measurements Intervals [place] Rate: 122 P: 106 [place]: 118 QRS: 228 QRSD: 95 T: 88 QT: 301 QTc: 429 Interpretive Statements Sinus tachycardia Multiple ventricular premature complexes Possible inferior infarct, old Poor R wave progression Compared to ECG 04/14/2017 12:21:43 Ventricular premature complex(es) now present Sinus tachycardia has replaced junctional tachycardia Electronically Signed On 04-16-2017 11:20:13 HI [employer] by Brady Veloz [email or web address] <ELECTRONICALLY SIGNED> By: Brady Veloz MD, [facility] 04/16/17 1120 1536 1536 Brady Veloz MD, [facility] /EPI
[~2017-04-15 15:33] MED LIST changes: +CARDIZEM CD180 MG PO; +HYDROCODON-ACE1 EAC7 PO; +METOPROLOL SUCC25 M1 PO
[2017-04-15 15:34] VITALS: BP 120/88
[2017-04-15 16:24] LABS: ABG SAMPLE TYPE ARTERIAL; BE(vivo) 4.8 mmol/L (-2 to +3); HCO3 28.2 mmol/L (22.0-26.0); LACTATE 1.16 mmol/L (0.5-2.0); O2(CT) 21.4 mL/dL (15.0-23.0); PCO2 37.8 mmHg (35.0-45.0); PO2 79.9 mmHg (80.0-100.0); STICK SITE R.RADIAL; pH 7.491 (7.360-7.450); sO2 96.6 % (92.0-98.0); tCO2 29.4 mmol/L (24.0-30.0)
[2017-04-15 16:24] LABS: HEMATOCRIT 47.5 % (42.0-52.0); HEMOGLOBIN 15.7 gm/dL (14.0-18.0); MCH 28.9 pg (26.0-34.0); MCHC 33.1 g/dL (28.0-37.0); MCV 87.3 fL (80.0-100.0); PLATELET COUNT 316 thou/uL (150-400); RBC 5.43 mil/uL (4.50-6.00); WBC 27.9 thou/uL (4.0-11.0)
[2017-04-15 16:25] LABS: MANUAL DIFF YES
[2017-04-15 16:33] LABS: ANION GAP 11 mmol/L (7-16); BUN 22 mg/dL (7-18); CALCIUM 9.5 mg/dL (8.5-10.1); CHLORIDE 99 mmol/L (98-107); CO2 29 mmol/L (21-32); CREATININE 0.5 mg/dL (0.7-1.3); GLUCOSE 127 mg/dL (74-106); POTASSIUM 4.9 mmol/L (3.5-5.1); SODIUM 139 mmol/L (136-145)
[2017-04-15 16:42] LABS: ALBUMIN 3.4 g/dL (3.4-5.0); ALKALINE PHOSPHATASE 67 U/L (46-116); SGOT 21 U/L (15-37); SGPT 65 U/L (30-65); TOTAL BILIRUBIN 0.9 mg/dL (<0.1-1.0); TROPONIN-I < 0.04 ng/mL (<0.06)
[2017-04-15 16:53] LABS: ABSOLUTE NEUTROPHILS 23.4 thou/uL (1.4-8.2); TOTAL CELL COUNT 100
[2017-04-15 16:54] LABS: PLATELET ESTIMATE NORMAL
[2017-04-15 17:25] VITALS: BP 97/73
[2017-04-15 17:33] VITALS: BP 109/78
[2017-04-15 17:58] VITALS: BP 131/92
[2017-04-15 20:00] VITALS: BP 114/89
[2017-04-15 23:42] VITALS: BP 102/73
[2017-04-16 04:00] VITALS: BP 104/88
[2017-04-16 06:36] LABS: MCH 28.6 pg (26.0-34.0); MCV 86.8 fL (80.0-100.0); PLATELET COUNT 320 thou/uL (150-400); RBC 4.73 mil/uL (4.50-6.00); WBC 22.6 thou/uL (4.0-11.0)
[2017-04-16 06:47] LABS: HEMOGLOBIN 13.5 gm/dL (14.0-18.0); MANUAL DIFF YES
[2017-04-16 06:48] LABS: CREATININE 0.7 mg/dL (0.7-1.3); POTASSIUM 4.4 mmol/L (3.5-5.1)
[2017-04-16 07:18] LABS: ABSOLUTE NEUTROPHILS 20.6 thou/uL (1.4-8.2); PLATELET ESTIMATE NORMAL; TOTAL CELL COUNT 100
[2017-04-16 07:31] VITALS: BP 129/90
[2017-04-16 11:37] VITALS: BP 126/90
[2017-04-16 15:34] VITALS: BP 127/78
[2017-04-16 20:00] VITALS: BP 100/78
[2017-04-17 04:00] VITALS: BP 116/79
[2017-04-17 05:19] LABS: HEMATOCRIT 36.4 % (42.0-52.0); MCH 28.8 pg (26.0-34.0); MCHC 32.9 g/dL (28.0-37.0); MCV 87.5 fL (80.0-100.0); PLATELET COUNT 318 thou/uL (150-400); RBC 4.16 mil/uL (4.50-6.00); RDW 15.2 % (10.5-14.5); WBC 22.7 thou/uL (4.0-11.0)
[2017-04-17 05:28] LABS: MANUAL DIFF YES
[2017-04-17 05:34] LABS: CALCIUM 8.6 mg/dL (8.5-10.1); CREATININE 0.6 mg/dL (0.7-1.3); POTASSIUM 4.3 mmol/L (3.5-5.1)
[2017-04-17 07:37] VITALS: BP 98/71
[2017-04-17 07:45] LABS: ABSOLUTE NEUTROPHILS 21.3 thou/uL (1.4-8.2); TOTAL CELL COUNT 100
[2017-04-17 07:48] LABS: ANISOCYTOSIS 1+
[2017-04-17 11:55] VITALS: BP 108/52
[2017-04-17 15:52] VITALS: BP 107/76
[2017-04-17 20:12] VITALS: BP 137/101
[2017-04-17 23:10] VITALS: BP 111/81
[2017-04-18 04:49] LABS: HEMATOCRIT 36.6 % (42.0-52.0); MCHC 32.8 g/dL (28.0-37.0); MCV 88.4 fL (80.0-100.0); PLATELET COUNT 329 thou/uL (150-400); RBC 4.14 mil/uL (4.50-6.00); RDW 15.2 % (10.5-14.5); WBC 18.6 thou/uL (4.0-11.0)
[2017-04-18 04:51] LABS: MANUAL DIFF YES
[2017-04-18 05:01] LABS: CALCIUM 8.5 mg/dL (8.5-10.1); CREATININE 0.4 mg/dL (0.7-1.3)
[2017-04-18 06:00] LABS: ABSOLUTE NEUTROPHILS 17.5 thou/uL (1.4-8.2); ANISOCYTOSIS SLIGHT; TOTAL CELL COUNT 100
[2017-04-18 08:06] VITALS: BP 123/88
[2017-04-18 11:24] VITALS: BP 110/86
[2017-04-18 16:15] VITALS: BP 137/92
[2017-04-18 20:15] VITALS: BP 134/78
[2017-04-19 03:07] LABS: HEMATOCRIT 36.7 % (42.0-52.0); HEMOGLOBIN 11.9 gm/dL (14.0-18.0); MCH 28.6 pg (26.0-34.0); MCHC 32.5 g/dL (28.0-37.0); MCV 88.1 fL (80.0-100.0); PLATELET COUNT 338 thou/uL (150-400); RBC 4.17 mil/uL (4.50-6.00); RDW 14.8 % (10.5-14.5); WBC 18.6 thou/uL (4.0-11.0)
[2017-04-19 03:16] LABS: CALCIUM 8.5 mg/dL (8.5-10.1); CREATININE 0.5 mg/dL (0.7-1.3)
[2017-04-19 03:56] LABS: MANUAL DIFF YES
[2017-04-19 04:55] VITALS: BP 118/82
[2017-04-19 05:55] LABS: ABSOLUTE NEUTROPHILS 16.9 thou/uL (1.4-8.2); ANISOCYTOSIS SLIGHT; TOTAL CELL COUNT 100
[2017-04-19 07:58] VITALS: BP 115/79
[2017-04-19 08:56] VITALS: BP 115/79
[2017-04-19 12:45] VITALS: BP 117/86
[2017-04-19 17:02] VITALS: BP 109/80
[2017-04-19 19:27] VITALS: BP 113/78
[2017-04-20 03:47] VITALS: BP 106/80
[2017-04-20 07:54] VITALS: BP 128/94
[2017-04-20 11:24] VITALS: BP 120/86
[2017-04-20 16:04] VITALS: BP 111/80
[2017-04-20 19:40] VITALS: BP 126/91
[2017-04-21 02:08] LABS: IgA 90 mg/dL (90-386); IgM 50 mg/dL (20-172)
[2017-04-21 03:30] VITALS: BP 130/96
[2017-04-21 06:09] LABS: IgG 292 mg/dL (700-1600)
[2017-04-21 06:29] LABS: CALCIUM 8.8 mg/dL (8.5-10.1); CREATININE 0.4 mg/dL (0.7-1.3); POTASSIUM 4.2 mmol/L (3.5-5.1)
[2017-04-21 07:42] VITALS: BP 124/90
[2017-04-21] MEDS ORDERED: LEVAQUIN 500 M500 M2 PO (09:06)
[2017-04-21 10:19] VITALS: BP 124/90
[2017-04-21 10:40] VITALS: BP 124/90
[2017-04-21 11:55] VITALS: BP 132/84
== END 2017-04-21 12:07 | disposition home health service (06) | DRG 177 ==
LOC: ER 15:33 → 3W 17:09 → EROBS 17:09 → 3W 17:39 → ENTRNSPT 04-21 11:39 → EDTRNSPTSTS 04-21 11:40 → EDTRNSPT 04-21 11:51 → 3W 04-21 12:07
PROVIDERS: Family Medicine; Internal Medicine Endocrinology, Diabetes & Metabolism; Internal Medicine Infectious Disease; Internal Medicine Pulmonary Disease; Nurse Practitioner Family
DX: J69.0 Pneumonitis due to inhalation of food and vomit (principal); E43 Unspecified severe protein-calorie malnutrition; J96.20 Acute and chronic respiratory failure, unspecified whether with hypoxia or hypercapnia; J44.1 Chronic obstructive pulmonary disease with (acute) exacerbation; Z68.1 Body mass index [BMI] 19.9 or less, adult; J98.11 Atelectasis; E23.0 Hypopituitarism; I10 Essential (primary) hypertension; F41.9 Anxiety disorder, unspecified; R73.9 Hyperglycemia, unspecified; K05.6 Periodontal disease, unspecified; F17.210 Nicotine dependence, cigarettes, uncomplicated; I49.3 Ventricular premature depolarization; Z90.81 Acquired absence of spleen; Z79.899 Other long term (current) drug therapy; Z88.6 Allergy status to analgesic agent; Z82.3 Family history of stroke; Z82.5 Family history of asthma and other chronic lower respiratory diseases; Z23 Encounter for immunization
CPT/HCPCS: 10779

== ENCOUNTER 2017-04-26 12:43 | Emergency (ER) | payer OTHER ==
[~2017-04-26] VITALS: Ht 188 cm; Wt 61.2 kg
--- NOTE | ~2017-04-26 | EKG ---
[address] [place] [place] [address] ELECTROCARDIOGRAM REPORT Name: BANDARCATHERINE Nohemi Room #: [facility]P [facility]INEN[facility]elima#: [id number] Admission: 04/26/17 Attend Phys: Discharge: 04/26/17 Date of : 57 Report #: [id number] THIS REPORT FOR: //name// [facility] ED Test Date: 2017-04-26 Test Time: 13:44:12 Pat Name: CATHERINE PORTILLO Department: Room: Gender: M Assemblyman Or Woman: : 1955 Requested By: Kira Whitney Order Number: [id number] MD: Gilmer Kaminski Measurements Intervals [place] Rate: 80 P: 55 FL: 172 QRS: -8 QRSD: 84 T: 72 QT: 354 QTc: 409 Interpretive Statements Sinus rhythm Probable left atrial enlargement Low voltage, extremity leads Minimal ST elevation, inferior leads Compared to ECG 04/15/2017 15:36:09 Low QRS voltage now present ST (T wave) deviation now present Sinus tachycardia no longer present Ventricular premature complex(es) no longer present Myocardial infarct finding no longer present Poor R-wave progression no longer present Electronically Signed On 04-26-2017 18:43:21 [employer]ACE [employer]NA[employer] by Gilmer Kaminski [email or web address] <ELECTRONICALLY SIGNED> By: Gilmer Kaminski MD 04/26/17 1843 [id number] 1344 Gilmer Kaminski MD /EPI
[2017-04-26 13:21] LABS: HEMATOCRIT 39.7 % (42.0-52.0); MANUAL DIFF YES; MCH 29.1 pg (26.0-34.0); MCHC 32.7 g/dL (28.0-37.0); PLATELET COUNT 306 thou/uL (150-400); RBC 4.46 mil/uL (4.50-6.00); RDW 15.7 % (10.5-14.5); WBC 11.5 thou/uL (4.0-11.0)
[2017-04-26 13:28] LABS: ANION GAP 5 mmol/L (7-16); BUN 11 mg/dL (7-18); CALCIUM 9.5 mg/dL (8.5-10.1); CHLORIDE 103 mmol/L (98-107); CO2 34 mmol/L (21-32); CREATININE 0.4 mg/dL (0.7-1.3); GLUCOSE 130 mg/dL (74-106); POTASSIUM 4.8 mmol/L (3.5-5.1); SODIUM 142 mmol/L (136-145)
[2017-04-26 13:32] LABS: ABG SAMPLE TYPE VENOUS; BE(vivo) 7.9 mmol/L (-2 to +3); HCO3 33.3 mmol/L (22.0-26.0); LACTATE 1.54 mmol/L (0.5-2.0); O2(CT) 16.5 mL/dL (15.0-23.0); O2Hb VENOUS 86.8 (65.0-85.0); PCO2 VENOUS 49.4 mmHg (41.0-51.0); PO2 VENOUS 52.7 mmHg (35.0-45.0); sO2 VENOUS 88.2 % (65.0-85.0); tCO2 34.8 mmol/L (24.0-30.0)
[2017-04-26 13:33] LABS: STICK SITE LINE
[2017-04-26 13:35] LABS: ALBUMIN 2.9 g/dL (3.4-5.0); ALKALINE PHOSPHATASE 70 U/L (46-116); SGOT 24 U/L (15-37); SGPT 53 U/L (30-65); TOTAL BILIRUBIN 0.6 mg/dL (<0.1-1.0); TOTAL PROTEIN 6.2 g/dL (6.4-8.2); TROPONIN-I < 0.04 ng/mL (<0.06)
[2017-04-26 14:03] LABS: ABSOLUTE NEUTROPHILS 9.9 thou/uL (1.4-8.2); ANISOCYTOSIS 1+; METAMYELOCYTES 1 %; TOTAL CELL COUNT 100
[2017-04-26] MEDS ORDERED: LEVAQUIN 500 M500 M2 PO (14:23)
[2017-04-26] MEDS ORDERED: ATIVAN0.5 MG PO (14:23)
[2017-04-26 14:47] VITALS: BP 119/84
== END 2017-04-26 14:53 | disposition home or self-care (01) ==
LOC: ER 12:43
PROVIDERS: Nurse Practitioner Family
DX: Z76.0 Encounter for issue of repeat prescription (principal); F41.9 Anxiety disorder, unspecified; R06.00 Dyspnea, unspecified; J44.9 Chronic obstructive pulmonary disease, unspecified; I10 Essential (primary) hypertension; Z88.6 Allergy status to analgesic agent; Z87.891 Personal history of nicotine dependence